=== PATIENT | male | born 1950 | race Caucasian/White ===

== ENCOUNTER 2025-05-22 22:11 | Emergency (ER) | payer MEDICARE, BC, SELFPAY ==
[2025-05-22 22:18] VITALS: BP 149/103
[2025-05-22 23:00] LABS: Hematocrit 47.2 % (39.0-52.0); Hemoglobin 16.6 g/dL (13.0-18.0); Mean Corp Hgb Conc. 35.2 g/dL (33.0-37.0); Mean Corpuscular Volume 85.4 fL (80.0-94.0); Nucleated Red Blood Cells % 0 % (-); Platelet Count 250 10^3/uL (130-400); Red Cell Dist. Width 12.7 % (11.5-14.5)
[2025-05-22 23:15] LABS: ALT (SGPT) 17 U/L (0-50); AST (SGOT) 22 U/L (17-59); Albumin 4.5 g/dl (3.5-5.0); Alkaline Phosphatase 60 U/L (38-126); Blood Urea Nitrogen 17 mg/dl (9-20); Calcium 9.7 mg/dl (8.4-10.2); Carbon Dioxide 25 mmol/L (22-30); Chloride 105 mmol/L (98-107); Glucose 96 mg/dl (70-99); Potassium 3.8 mmol/L (3.5-5.1); Sodium 139 mmol/L (135-145); Total Protein 7.6 g/dl (6.3-8.2); eGFR > 60.00
[2025-05-22 23:27] LABS: Troponin I < 0.012 ng/ml
[2025-05-22 23:57] VITALS: BP 158/93
[2025-05-22 23:58] VITALS: BMI 26.7
--- NOTE | 2025-05-23 00:41 | ED.GENMED ---
History of Present Illness
General
Chief Complaint: Chest Pain
Time Seen by Provider: 05/22/25 23:52
History of Present Illness
History of Present Illness:
74-year-old male without significant past medical history presenting to the emergency department for left-sided chest pain. Patient reports symptoms for the past 3 days. Pain is only present with deep inspiration. Reports that he has been having
a nonproductive cough. Denies any fever. Denies any known cardiac history, does report some family history. He notes that he has had the same pain in the past, with unremarkable workup, deemed to not be cardiac in quality. Denies any history of
blood clots. Denies fever. Denies additional acute medical complaints
Past History
Past History
ED Past Medical History: Asthma
ED Past Surgical History: None
Social History
Tobacco: Non-smoker
Living: with family
Phy Exam
Physical Exam
Physical Exam:
General: Well-appearing, no clinical signs of dehydration, nontoxic and in no acute distress
HEENT: protecting airway
Neck: appears supple
CV: Normal heart rate, regular rhythm
Resp: No accessory muscle use, no increased work of breathing, lungs clear to auscultation bilaterally
Abd: Soft and non-distended, no tenderness to palpation
Extremities: No deformities, no swelling
Neuro: alert, no focal neurologic deficit
: deferred
Rectal: deferred
Psych: Normal affect
Skin: Intact
Scores
Heart Score for Chest Pain Patients
STEMI patient?: No
History: Slightly or Non-Suspicious
ECG: Normal
Age: >/= 65 years
Risk Factors: 1 or 2 Risk Factors
Troponin: </= Normal Limit
Heart Score for Chest Pain Patients: 3
Heart Score Risk: 2.5% MACE over next 6 weeks
Course
Orders/Labs/Results
Orders:
Orders
05/22/25 22:12
ECG [Electrocardiogram (*1)] Urgent
Reason for Study: Chest Pain
Cardiology Consult: Unknown
EKG- Treatment ONCE
05/22/25 22:46
Cardiac Monitoring- Treatment ONCE
IV Insert/Care/Rem.- Treatment PRN
CR Chest - 2 Views Urgent
Comment:
Reason For Exam: respiratory distress
O2 Therapy [RESP] Urgent
Titrate/Wean O2 to maintain O2 sat greater than (%): 93
Special Instructions: TO MAINTAIN CONTINUOUS O2 SATS >/= 93%
Pulse Ox/cont/shift [RESP] Urgent
Quantity: 1
Special Instructions: continuous pulse ox
05/22/25 22:53
Complete Blood Count/With Diff Urgent
Comprehensive Metabolic Panel Urgent
NT-proBNP Urgent
Troponin I Urgent
Abnormal Lab Results
05/22/25
22:53
Absolute Monos (auto) 1.0 H 10^3/uL
(0.1-0.6)
Monocytes % 9.7 H %
(1.7-9.3)
05/22/25 22:53
05/22/25 22:53
Vital Signs
Initial and Last Documented VS:
Initial Vital Signs
Temp Pulse Resp BP Pulse Ox
97.8 F 82 16 149/103 97
05/22/25 22:18 05/22/25 22:18 05/22/25 22:18 05/22/25 22:18 05/22/25 22:18
Last Documented Vital Signs
Temp Pulse Resp BP Pulse Ox
97.8 F 64 17 158/93 98
05/22/25 22:18 05/23/25 00:00 05/23/25 00:00 05/22/25 23:57 05/22/25 23:58
MDM/Problems Addressed
MDM/Problems Addressed:
74-year-old male without significant past medical history presenting for left-sided chest pain with cough and deep inspiration. Vital signs are significant for mild hypertension.
On exam patient is resting comfortably, no acute distress or discomfort. Patient notes that the pain is only present with deep inspiration. EKG obtained on arrival, nonischemic. Without present concern for ACS. Suspect that pain could be
secondary to mild pleurisy from cough and upper respiratory virus. Patient does have a mild wheeze on end expiration with coughing. Possible mild bronchitis. Labs obtained prior to my assessment, negative troponin. Patient low risk by heart
score. Chest x-ray obtained, no focal infiltrate or sign of pneumonia. BNP within normal limits. At this time given duration of symptoms, reassuring examination, reassuring symptom presentation and reassuring EKG, feel stable for discharge with
outpatient follow-up. Will prescribe inhaler and short course of steroids in the setting of bronchitis. Patient in agreement with plan. Return precautions discussed and patient verbalized understanding
*Pulse Oximetry
SaO2: 98
Oxygen Mode of Delivery: Room air
Patient hypoxic: no
*EKG
Interpreted by ED Provider?: Yes
EKG Intrepretation Date: 05/23/25
EKG Intrepretation Time: 00:43
Interpretation: normal
Heart Rate: 77
Rate: normal
Rhythm: sinus
[place]: normal axis
Interval: normal interval
QRS Pattern: normal QRS
Ischemia: no ischemia
*Critical Care Note
Total Time (30-74mins, 75-104mins- exclusive of procedures): Not Applicable
ED Attending Note
-
Portions of this chart may have been created with voice recognition software.� Occasional wrong word or��sound alike� substitutions may have occurred due to the inherent limitations of voice recognition software.
Discharge Plan
Departure
Patient Disposition: Home (Routine Discharge)
Date of Disposition: 05/23/25
Time of Disposition: 00:49
Patient with high blood pressure during this ER visit?: Yes
Condition: Good
Discharge Problem:
Chest pain, Bronchitis
Instructions: Acute bronchitis in adults, Chest pain, BLOOD PRESSURE
Prescriptions:
New
albuterol sulfate 90 mcg/actuation aerosol powdr breath activated
2 inh inhalation Q6H PRN (Reason: shortness of breath or wheezing) Qty: 1 0RF
methylprednisolone [Medrol (Willis)] 4 mg tablets,dose pack
See Rx Instructions .ROUTE .COMPLEX Qty: 21 0RF
Rx Instructions:
for 6 days
No Action
fluticasone propion-salmeterol 1 DISK blister with device
Patient Comments:
pt unsure of dose
albuterol sulfate 1 PUFF HFA aerosol inhaler
PRN (Reason: asthma)
Glucosamine
500 mg PO DAILY
multivitamin [Daily Multiple] 1 EACH tablet
1 ea PO DAILY
Referrals:
Coleman Almaguer MD [Family Provider, Family Practice]
Chasidy Otero DO [Active, Cardiology]
Activity Restrictions/Additional Instructions:
You were seen in the emergency department for chest pain with deep inspiration
You were found to have reassuring laboratory analysis, vital signs, chest x-ray imaging. We suspect that you have a mild bronchitis.
Please follow-up closely with your primary care physician as well as a finance manager.
Return to the emergency department for any worsening of your symptoms, or any development of chest pain, difficulty breathing, abdominal pain with persistent vomiting and inability to tolerate food or liquid by mouth (concern for dehydration),
weakness, headache or confusion, fever greater than 100.4, or any additional symptoms that are concerning to you.
Thank you for choosing [facility].
Interventions
Interventions:
*Risk Screen - Suicide Last Done: 05/22/25 22:18
*General Assessment Last Done: 05/22/25 22:18
*Neglect/Abuse Screening Last Done: 05/22/25 22:18
*ED- Fall Risk Assessment Last Done: 05/22/25 23:58
*ED COVID-19 Vaccine History Last Done: 05/22/25 23:58
*ED Influenza Vaccine History Last Done: 05/22/25 23:58
ED- Cardiac Assessment Last Done: 05/22/25 23:58
Discharge Date and Time
Print Language: ARABIC
== END 2025-05-23 01:01 | disposition home or self-care (01) ==
LOC: EMR 22:11
PROVIDERS: EMERGENCY PHYSICIAN Student in an Organized Health Care Education/Training Program; FAMILY PHYSICIAN Family Medicine
DX: J40 Bronchitis, not specified as acute or chronic (principal); R03.0 Elevated blood-pressure reading, without diagnosis of hypertension
CPT/HCPCS: 99284; 71046; 80053; 83880; 84484; 85025; 93005

== ENCOUNTER → 2025-07-06 06:26 | Outpatient (REF) | payer MEDICARE, BC, SELFPAY ==
[2025-07-06 10:36] LABS: Hematocrit 45.3 % (39.0-52.0); Hemoglobin 15.2 g/dL (13.0-18.0); Mean Corp Hgb Conc. 33.6 g/dL (33.0-37.0); Mean Corpuscular Volume 90.2 fL (80.0-94.0); Nucleated Red Blood Cells % 0 % (-); Platelet Count 246 10^3/uL (130-400); Red Cell Dist. Width 13.0 % (11.5-14.5)
[2025-07-06 11:15] LABS: ALT (SGPT) 17 U/L (0-50); AST (SGOT) 23 U/L (17-59); Albumin 4.2 g/dl (3.5-5.0); Alkaline Phosphatase 54 U/L (38-126); Blood Urea Nitrogen 17 mg/dl (9-20); Calcium 9.3 mg/dl (8.4-10.2); Carbon Dioxide 28 mmol/L (22-30); Chloride 105 mmol/L (98-107); Glucose 88 mg/dl (70-99); HDL Cholesterol 68 mg/dl; LDL Cholesterol, Calculated 148 mg/dl; Potassium 4.5 mmol/L (3.5-5.1); Sodium 137 mmol/L (135-145); Total Protein 7.1 g/dl (6.3-8.2); Very Low Density Lipoprotein 14 mg/dl (0-30); eGFR > 60.00
[2025-07-06 11:36] LABS: PSA, Total - Screen 0.68 ng/ml (0.0-4.0)
== END ==
LOC: HWLAB 06:26
PROVIDERS: ATTENDING PHYSICIAN Family Medicine
DX: E78.2 Mixed hyperlipidemia (principal); Z12.5 Encounter for screening for malignant neoplasm of prostate
CPT/HCPCS: 36415; 80053; 80061; 85025; G0103